=== PATIENT | female | born 1965 | race Caucasian/White ===

== ENCOUNTER → 2021-03-02 | Outpatient (CLI) | payer OTHER ==
[~2021-03-02] MED LIST: NORCO5 PO; VITAMIN D325 MC3 PO
== END ==
LOC: LAB 10:16
PROVIDERS: ATTEND Surgery
DX: Z01.812 Encounter for preprocedural laboratory examination (principal); Z20.822 Contact with and (suspected) exposure to COVID-19

== ENCOUNTER 2021-03-05 07:31 | Day surgery (SDC) | payer OTHER ==
[~2021-03-05] VITALS: Ht 157.5 cm; Wt 100.2 kg
[~2021-03-05 07:31] MED LIST changes: -NORCO5 PO
[2021-03-05 09:38] VITALS: BP 131/63
[2021-03-05] MEDS ORDERED: NORCO5 PO (10:40)
[2021-03-05 10:46] VITALS: BP 131/63
--- NOTE | 2021-03-08 19:06 | PATH ---
[facility] [place] [place] [address] PATHOLOGY RPT PROCEDURE Name: KUMAR SINHA Room #: DEP [facility] M.R.#: [id number] Admission: 03/05/21 Date of : 63 Discharge: 03/05/21 Report #: [id number] Path Case #: [id number] [facility] Accession Number: [id number] . 01 Material submitted: . gallbladder - GALLBLADDER AND CONTENTS . 01 Clinical history: . LAPAROSCOPIC CHOLECYSTECTOMY CALCULUS OF GALLBLADDER POST OP SAME PREOP . 02 Diagnosis: Gallbladder, cholecystectomy: - Mild chronic cholecystitis. - Cholelithiasis. . (IUV:ayaka; 03/08/2021) QMS 03/08/2021 1653 Local . 02 Electronically signed: . Audrey May MD, Pathologist NPI- [id number] . 01 Gross description: . Fixative: Formalin Labeled: Gallbladder and contents Specimen received: Intact Dimensions: 6.1 x 2.7 x 1.8 cm Serosa: Smooth, gregg-yellow and glistening with a roughened hepatic bed Lymph node: No Mucosa: Velvety, gregg-green Average wall thickness: 0.4 cm Calculi: Yellow-green calculus measuring 0.9 x 0.6 x 0.6 cm Abnormalities: None A1- Financial Aid Director body, fundus, and the cystic duct margin(inked black). ([facility]; 03/07/2021) GZA/GZA 03/07/2021 0920 Local . 02 Pathologist provided ICD-10: K80.10 . 02 CPT . 441996 Specimen Comment: A courtesy copy of this report has been sent to [phone] Specimen Comment: Report sent to Performed at: [address] [address] PATHOLOGY RPT PROCEDURE Name: KUMAR SINHA Room #: DEP [facility] [place] Dawna#: [id number] Admission: 03/05/21 Date of : 63 Discharge: 03/05/21 Report #: [id number] Path Case #: [id number] [address] [id number] MD Flavio Meadows MD Phone: [phone] Performed at: [address] [id number] MD Audrey May MD Phone: [phone]
--- NOTE | 2021-03-25 08:42 | O ---
[facility] [place] [address] OPERATIVE REPORT Name: KUMAR SINHA Room #: DEP [facility]..#: [id number] Admission: 03/05/21 Attend Phys: Angel Panchal, Discharge: 03/05/21 Date of : 63 Report #: [id number] THIS REPORT FOR: cc: Amy Land MD, Emily G. MD Patterson,Angel Lowe MD ~ DATE OF SERVICE: 03/05/2021 PREOPERATIVE DIAGNOSIS: Symptomatic cholelithiasis. POSTOPERATIVE DIAGNOSIS: Symptomatic cholelithiasis. OPERATION: Laparoscopic cholecystectomy. SURGEON: Angel Panchal MD ANESTHESIA: General. ESTIMATED BLOOD LOSS: Minimal. SPECIMEN: Gallbladder. DESCRIPTION OF PROCEDURE: After informed consent was obtained, the patient was brought to the operating room and placed supine. SCDs were placed and working, preoperative antibiotics were administered, general anesthesia was induced. The abdomen was prepped and draped in a usual sterile fashion. A 10 mm incision was made below the umbilicus. Fascia was incised and a trocar was placed. Pneumoperitoneum was established. Three right upper quadrant 5 mm ports were placed. Gallbladder was grasped at the fundus and retracted cephalad. Infundibulum was grasped and retracted laterally. I dissected out the cystic duct and the cystic artery, as well as the cystic plate. Cystic duct and artery were clipped and ligated leaving 2 clips on the remaining duct and 1 on the remaining artery. Gallbladder was then taken off the liver bed with electrocautery. It was placed into an Endopouch and removed. The fascia was then closed with a [id number] 0 Vicryl. Skin was closed with 4-0 Monocryl. Incisions were dressed with Steri-Strips. COMPLICATIONS: None. DISPOSITION: The patient was taken to recovery in satisfactory condition. <ELECTRONICALLY SIGNED> By: Angel Panchal MD 03/25/21 0842 [id number] Angel Panchal MD /nt
== END 2021-03-05 10:46 | disposition home or self-care (01) ==
LOC: EDBD → OR 07:31 → TBA 07:33 → OR 10:46
PROVIDERS: ATTEND Surgery
DX: K80.10 Calculus of gallbladder with chronic cholecystitis without obstruction (principal); R10.11 Right upper quadrant pain; Z98.890 Other specified postprocedural states; Z79.899 Other long term (current) drug therapy; Z87.891 Personal history of nicotine dependence; Z88.0 Allergy status to penicillin
CPT/HCPCS: 50010; 50101; 50411; 50555; 51489; 52265; 52266; 53307; 53312; 53314; 55245; 56462; 56525; 56526; 58574; 62110; 62900; 70005